=== PATIENT | female | born 1975 | race African-American/Black ===

== ENCOUNTER 2021-08-21 15:52 | Emergency (ER) | payer MEDICAID ==
[~2021-08-21] VITALS: Ht 175.3 cm; Wt 66.0 kg
[2021-08-21] MEDS ORDERED: CLIN300C12 MT (16:19)
[2021-08-21] MEDS ORDERED: HYDR-4001 MT (16:19)
[2021-08-21 16:22] VITALS: BP 122/79
[2021-08-21] MEDS ORDERED: KETOROLAC 60MG/2ML VIAL IM ONE (16:30)
== END 2021-08-21 17:00 | disposition home or self-care (01) ==
LOC: ER 15:52
DX: K04.01 Reversible pulpitis (principal); F10.10 Alcohol abuse, uncomplicated; Y90.9 Presence of alcohol in blood, level not specified; Z71.41 Alcohol abuse counseling and surveillance of alcoholic
CPT/HCPCS: 96372; 99283; J1885